=== PATIENT | female | born 1965 | race Caucasian/White ===

== ENCOUNTER 2023-09-18 07:18 | Emergency (ER) | payer OTHER, SELFPAY ==
[2023-09-18] VITALS (7 sets, daily range): BP systolic 158–215; BP diastolic 86–121; PULSE 117–132; RESP 19–24; TEMP 36.4; O2SAT 95–100
--- NOTE | ~2023-09-18 | US_ITS ---
EXAMINATION: US venous doppler [facility] DATE: 09/18/2023 08:51 INDICATION: Left lower limb swelling TECHNIQUE: Will scale images without and with compression and Doppler images of the left lower extrem ity veins were obtained. COMPARISON: None FINDINGS: The left common femoral vein, profunda femoral vein, femoral vein, popliteal vein, peroneal trunk, posterior tibial veins, and greater saphenous vein are patent. IMPRESSION: 1. Patent left lower extremity veins. No evidence of deep venous thrombosis. Reviewed, dictated and finalized at location B. ORICAL SOCIETY DIRECTOR
--- NOTE | ~2023-09-18 | XR_ITS ---
EXAMINATION: XR ankle LT min 3V DATE: 09/18/2023 08:36 INDICATION: 3 weeks of left ankle pain and swelling TECHNIQUE: Anteroposterior, oblique, mortise, and lateral views of the left ankle were obtained. COMPARISON: None. FINDINGS: Old healed distal left fibular fracture with interfragmentary screws and lateral plate and screw fixa tion. Possible additional old healed fracture involving the anterolateral margin of the distal tibia. Region of curvilinear sclerosis at the lateral metaphyseal region of the distal tibia which could be related to old fracture with differential including enchondroma or bone infarct. There is severe ost eoarthritis at the ankle joint with severe lateral side predominant nonuniform joint space narrowing with remodeling of the lateral side of the articular surface of the tibial plafond and. This results in mild valgus angulation at the ankle. No acute fracture. Distal mild polyarticular osteoarthritis a t the visualized mid and hindfoot. One is a small plantar calcaneal spur. Increased density anterior to the tibiotalar joint line which could represent a small joint effusion and/or synovitis. Diffuse s oft tissue swelling about the ankle and to lesser degree the distal lower leg. IMPRESSION: 1. Old healed distal left tibial and fibular fractures in near anatomic alignment with internal fixat ion along the distal fibula. No acute osseous abnormality. 2. Severe likely secondary osteoarthritis at the ankle joint with small joint effusion and/or synovit is. 3. Sclerotic lesion in the distal tibial metaphysis with differential including scarring related to o ld fracture, enchondroma or bone infarct. Reviewed, dictated and finalized at location A. NT SERVICES ACCOUNT MANAGER IMPRESSION: 1. Old healed distal left tibial and fibular fractures in near anatomic alignme nt with internal fixation along the distal fibula. No acute osseous abnormality . 2. Severe likely secondary osteoarthritis at the ankle joint with small joint e ffusion and/or synovitis. 3. Sclerotic lesion in the distal tibial metaphysis with differential including scarring related to old fracture, enchondroma or bone infarct.
--- NOTE | 2023-09-18 07:45 | ECG_ITS ---
Measurements Intervals [place] Rate: 126 P: 250 MA: 145 QRS: 47 QRSD: 101 T: 14 QT: 317 QTc: 459 Interpretive Statements SINUS TACHYCARDIA INCOMPLETE LEFT BUNDLE BRANCH BLOCK ABNORMAL ECG NO PREVIOUS ECG AVAILABLE FOR COMPARISON Electronically Signed On 09-18-2023 8:38:54 PHYSICAL INTEGRATION PRACTITIONER by Abdelrahman Andrews D.O.
--- NOTE | 2023-09-18 08:13 | ED.LOWEXIN ---
HPI - Extremity Injury (Lower) General Chief Complaint: Extremity Injury, Lower Stated Complaint: left foot pain Time Seen by Provider: 09/18/23 07:26 History of Present Illness HPI Narrative: Patient is a 57-year-old female with prior history of breast cancer in remission, status post chemo, radiation, left mastectomy here with left foot pain and left leg swelling. She states that in the year 1999 she ?shattered ? her left ankle. She had metal plates placed on the lateral aspect of her left ankle at an outside hospital. She notes that she has had swelling in this ankle and foot for many years but it seemed to have worsened over the last 2 weeks. She denies any enticing incident such as trauma, twisting. She denies any redness, warmth, fever, chills. She does note that she is on her feet all day at work and the pain and swelling seemed to be worse at the end of a long day. She uses ibuprofen as needed for pain, last dose around 430 this morning. She has tried compression stocking in the past and did not feel that it significantly improved her swelling in this leg. She has not seen a doctor in many years and does not know any other medical problems or possible history of hypertension. She would like to be referred to a primary care doctor during this visit. She denies any chest pain or shortness of breath. Related Data Allergies Allergy/AdvReac Type Severity Reaction Status Date / Time Penicillins Allergy Rash Verified 09/18/23 07:29 Review of Systems Review of Systems: All systems reviewed & are unremarkable except as noted in HPI and below Exam Narrative: GENERAL: Well-appearing, well-nourished, and in no acute distress. HEAD: Normocephalic, atraumatic. EYES: PERRLA and EOMI. ENT: Nares clear. Mucous membranes moist. NECK: Supple. CHEST: Clear to auscultation. No respiratory distress. HEART: Regular rate and rhythm. Normal peripheral pulses. ABDOMEN: Soft, nontender, nondistended. EXTREMITIES: Normal range of motion. Strong DP pulse bilaterally, swelling to the left ankle diffusely extending up into the left calf. Mild tenderness on exam. Well-healed surgical scar over the lateral malleolar region. No overlying erythema or warmth. No calf tenderness. SKIN: Warm, dry, no rash. NEURO: No focal deficits. Alert and oriented x3. PSYCH: Normal mood and affect. Course Course Emergency Course: Chart review performed, patient here for left foot redness, swelling and pain that has been going on for years but worsened over the last couple of weeks. Reportedly has a history of a metal plate with screws in his left foot. Triage vitals show hypertension, tachycardia in triage note states that she was quite anxious about arrival to the emergency department. No prior visits in our system. Patient seen evaluated, nontoxic appearing. Blood pressure and heart rate appear to be improving just with placing her in a quiet room. Suspect there is an aspect of white coat hypertension at play. Will do lab work, XR, rule out DVT in the LLE. Patient agreeable to workup and plan. Lab work and imaging reviewed, CBC within normal limits, electrolytes within normal limits, normal renal function, normal liver function, CRP within normal limits. ESR minimally elevated at 21. Low suspicion for infectious process. BNP is elevated at 1510, no baseline. No respiratory symptoms. This can likely be followed with her primary care doctor. X-ray shows internal fixation in place with old healed tibial and fibular fractures. 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 Lower extremity Doppler negative. Patient re-evaluated, vital signs have significantly improved since arriving to the emergency department without intervention. Continues to be somewhat anxious here which is what I believe is attributing to her tachycardia. We will refer her to primary care doctor. Advised ice, rest, elevation and Tylenol and ibuprofen as needed for her pain in her ankle.
[2023-09-18 08:39] LABS: Basophils Absolute Auto 0.1 K/mm3 (0.0-0.1); Basophils Percent Auto 1.1 % (0.2-1.2); Eosinophils Absolute Auto 0.2 K/mm3 (0-0.3); Hematocrit 42.7 % (37.0-47.0); Hemoglobin 14.4 g/dL (12.0-15.0); Immature Granulocyte Absolute 0.01 K/mm3 (0.00-0.031); Immature Granulocyte Percent A 0.2 % (0-0.5); Lymphocytes Absolute Auto 1.26 K/mm3 (0.9-3.2); Lymphocytes Percent Auto 22.4 % (18.3-44.2); Mean Corpuscular HGB Conc 33.7 g/dl (32-36); Mean Corpuscular Hemoglobin 32.7 pg (26-34); Mean Corpuscular Volume 96.8 fl (80-100); Mean Platelet Volume 9.6 fl (7.4-10.4); Monocytes Absolute Auto 0.7 K/mm3 (0.1-0.6); Monocytes Percent Auto 12.6 % (2.6-8.5); Neutrophils Absolute Auto 3.4 K/mm3 (1.3-6.7); Neutrophils Percent Auto 60.7 % (45.5-73.1); Platelet Count Result 315 k/mm3 (150-375); Red Blood Count 4.41 M/mm3 (4.2-5.4); Red Cell Distribution Width 12.7 % (11.5-14.5); White Blood Count 5.6 K/mm3 (4.5-10.0)
[2023-09-18 08:52] LABS: Alanine Aminotransferase 18 U/L (6-35); Albumin Level 4.4 g/dL (3.5-5.1); Alkaline Phosphatase 91 U/L (38-126); Anion Gap 8 mmol/L (8-16); Aspartate Amino Transferase 34 U/L (14-36); Bilirubin,Total 0.7 mg/dL (0.2-1.3); Blood Urea Nitrogen 11 mg/dL (7-17); CRP 0.7 mg/dL (<1.0); Calcium 9.6 mg/dL (8.4-10.2); Carbon Dioxide 23 mmol/L (22-30); Chloride 104 mmol/L (98-107); Estimated CRCL calculation 115 ml/min; Estimated Glomerular Filt Rate > 60; Glucose 122 mg/dL (65-110); Potassium 4.2 mmol/L (3.4-5.0); Sodium 135 mmol/L (137-145)
[2023-09-18 09:02] LABS: Erythrocyte Sedimentation Rate 21 mm/hr (0-20); NT Pro B Type Natriuretic Pept 1510 pg/mL (19.9-100)
== END 2023-09-18 11:45 | disposition home or self-care (01) ==
PROVIDERS: Emergency Provider Student in an Organized Health Care Education/Training Program
DX: M25.572 Pain in left ankle and joints of left foot (principal); R03.0 Elevated blood-pressure reading, without diagnosis of hypertension; M25.472 Effusion, left ankle; R78.9 Finding of unspecified substance, not normally found in blood; Z85.3 Personal history of malignant neoplasm of breast
CPT/HCPCS: 36415; 73610; 80053; 83880; 85025; 85652; 86140; 93005; 93971; 99284